=== PATIENT | female | born 1980 | race Caucasian/White ===

== ENCOUNTER 2021-02-06 05:10 | Day surgery (SDC) | payer OTHER ==
[2021-02-05 14:09] VITALS: BMI 29.9
[2021-02-06] MEDS ORDERED: MIDAZOLAM HCL 2 MG/2 ML SINGLE DOSE VIAL ONE (13:10)
[2021-02-06] MEDS ORDERED: PROPOFOL 20 ML ONE ×2 (13:11)
[2021-02-06] MEDS ORDERED: LIDOCAINE HCL 2% JELLY (5 ML/TUBE) ONE (13:22)
[2021-02-06] MEDS ORDERED: LIDOCAINE HCL/PF 2% SDV 5ML VIAL ONE (13:22)
[2021-02-06] MEDS ORDERED: KETOROLAC TROMETHAMINE 30 MG/1 ML VIAL ONE (13:22)
[2021-02-06] MEDS ORDERED: SUCCINYLCHOLINE CHLORIDE 200 MG/10 ML SYRINGE ONE (13:24)
[2021-02-06] MEDS ORDERED: EPHEDRINE SULFATE/0.9% NACL/PF 50 MG/10 ML SYRINGE NR ONE (13:25)
[2021-02-06] MEDS ORDERED: IBUPROFEN 400 MG TABLET (FP) PO PRN (14:13)
[2021-02-06] MEDS ORDERED: ACETAMINOPHEN 325 MG TABLET (FP) PO PRN (14:13)
[2021-02-06] MEDS ORDERED: ONDANSETRON 4 MG/2 ML VIAL ONE ×2 (15:46→16:58)
[2021-02-06] MEDS ORDERED: ONDANSETRON 4 MG/2 ML VIAL IVPUSH PRN (16:01)
[2021-02-06] MEDS ORDERED: LACTATED RINGERS SOLUTION 1,000 ML IV SCH (16:15)
[2021-02-06] MEDS ORDERED: ACETAMINOPHEN 325 MG TABLET (FP) ONE (16:48)
[2021-02-06] MEDS ORDERED: ONDANSETRON 4 MG/2 ML VIAL IVPB ONE (17:00)
[2021-02-06 18:14] VITALS: BP 124/76; PULSE 65; TEMP 98
== END 2021-02-06 18:18 | disposition home or self-care (01) ==
LOC: JASU-SURG 05:10
PROVIDERS: ATTEND Obstetrics & Gynecology
PROC: 0UDB7ZX Extraction of Endometrium, Via Natural or Artificial Opening, Diagnostic (ICD-10-PCS; principal; 2021-02-06 13:00)
PROC: 0UJD8ZZ Inspection of Uterus and Cervix, Via Natural or Artificial Opening Endoscopic (ICD-10-PCS; 2021-02-06 13:00)
DX: N93.9 Abnormal uterine and vaginal bleeding, unspecified (principal); N84.0 Polyp of corpus uteri
CPT/HCPCS: 81025; 88305-TC; 94760

== ENCOUNTER 2024-05-18 04:06 | Day surgery (SDC) | payer OTHER ==
[2024-05-16 14:05] VITALS: BMI 25.7
[2024-05-18] MEDS ORDERED: GABAPENTIN 300 MG CAPSULE ONE (07:01)
[2024-05-18] MEDS: GABAPENTIN 300 MG CAPSULE PO ONE (07:03)
[2024-05-18] MEDS ORDERED: MIDAZOLAM HCL 2 MG/2 ML SINGLE DOSE VIAL ONE (07:59)
[2024-05-18] MEDS ORDERED: PROPOFOL 20 ML ONE (07:59)
[2024-05-18] MEDS ORDERED: ROCURONIUM BROMIDE 50 MG/5 ML SYRINGE ONE (07:59)
[2024-05-18] MEDS: ceFAZolin SODIUM 1 GM VIAL IVPB ONE (08:29)
[2024-05-18] MEDS ORDERED: BUPIVACAINE HCL/PF 0.25% (2.5MG/ML) 10 ML VIAL ONE ×2 (08:51→08:55)
[2024-05-18] MEDS: BUPIVACAINE HCL/PF 0.25% (2.5MG/ML) 10 ML VIAL IJ ONE (08:57)
[2024-05-18] MEDS ORDERED: HYDROmorphone HCl 2 MG/ML VIAL ONE (09:34)
[2024-05-18] MEDS ORDERED: SUGAMMADEX SODIUM 200 MG/2 ML VIAL ONE (10:44)
[2024-05-18] MEDS: LACTATED RINGERS SOLUTION 1,000 ML IV SCH (11:05)
[2024-05-18] MEDS: CEFAZOLIN 2 GM in DEXTROSE 5%-WATER - 100 ML IVPB ONE (11:05)
[2024-05-18] MEDS ORDERED: ONDANSETRON 4 MG/2 ML VIAL ONE (14:15)
[2024-05-18] MEDS: ONDANSETRON 4 MG/2 ML VIAL IVPUSH PRN (14:17)
[2024-05-18 15:46] VITALS: RESP 20; TEMP 97.3
[2024-05-18] MEDS: oxyCODONE HCL 5 MG TABLET PO PRN (15:46)
[2024-05-18] MEDS ORDERED: oxyCODONE HCL 5 MG TABLET ONE (15:47)
[2024-05-18 18:03] VITALS: BP 118/80; PULSE 67
== END 2024-05-18 17:45 | disposition home or self-care (01) ==
LOC: JASU-SURG 04:06 → EDSTATUS 08:45 → JASU-SURG 17:45
PROVIDERS: ATTEND Specialist
PROC: 8E0W4CZ Robotic Assisted Procedure of Trunk Region, Percutaneous Endoscopic Approach (ICD-10-PCS; 2024-05-18)
PROC: 0UT90ZZ Resection of Uterus, Open Approach (ICD-10-PCS; principal; 2024-05-18 08:00)
DX: D25.1 Intramural leiomyoma of uterus (principal); N87.9 Dysplasia of cervix uteri, unspecified; N83.8 Other noninflammatory disorders of ovary, fallopian tube and broad ligament; N70.11 Chronic salpingitis
CPT/HCPCS: 58571; S2900; 81025; 88309-TC; 94760